=== PATIENT | female | born 1955 | race American Indian/Alaskan Native ===

== ENCOUNTER 2019-02-10 09:31 | Emergency (ER) | payer OTHER ==
[2019-02-10] MEDS ORDERED: TYLENOL PO ONE (10:25)
[2019-02-10] MEDS ORDERED: PEPCID PO ONE (10:25)
[2019-02-10] MEDS ORDERED: NACL 0.9% 500 ML 500 ML IV ONE ×2 (10:25→11:22)
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
[2019-02-10 10:57] LABS: Hematocrit 33.7 % (30.3-42.9); Hemoglobin 11.3 gm/dl (10.1-14.3); Mean Corpuscular HGB Conc 34 % (30-34); Mean Corpuscular Volume 106 fl (79-97); Platelet Count 475 K/mm3 (140-440); Red Blood Count 3.18 M/mm3 (3.65-5.03); Red Cell Distribution Width 12.9 % (13.2-15.2)
[2019-02-10] MEDS ORDERED: BENTYL PO ONE (11:00)
[2019-02-10 11:14] LABS: BUN/Creatinine Ratio 6; Blood Urea Nitrogen 11 mg/dL (7-17); Calcium 8.4 mg/dL (8.4-10.2); Hemolysis Index 568
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
--- NOTE | 2019-02-10 11:21 | XRay Report ---
LEFT SHOULDER, 3 VIEWS: History: Left shoulder pain. Routine views demonstrate normal bony and soft tissue structures with normal joint alignment of the shoulder. Mild osteopenia is suspected. IMPRESSION: No acute process. Mild osteopenia.
[2019-02-10] MEDS ORDERED: MAGNESIUM SULFATE 2GM/50ML 2 GM/50 ML BAG IV ONE (11:22)
[2019-02-10 11:26] LABS: Alanine Aminotransferase TNR units/L (7-56)
[2019-02-10 12:04] LABS: Alanine Aminotransferase 37 units/L (7-56); BUN/Creatinine Ratio 6; Blood Urea Nitrogen 11 mg/dL (7-17); Calcium 8.9 mg/dL (8.4-10.2); Hemolysis Index 30
[2019-02-10 13:05] LABS: Bilirubin,Urine NEG (Negative); Blood,Urine NEG (Negative); Color,Urine Yellow (Yellow); Mucus,Urine FEW /HPF; Urobilinogen,Urine < 2.0 mg/dL (<2.0)
[2019-02-10 13:07] LABS: Creatinine,Urine 176.6 mg/dL (0.1-20.0)
--- NOTE | 2019-02-10 13:09 | Cat Scan Report ---
PROCEDURE: CT HEAD/BRAIN WO CON TECHNIQUE: A noncontrast CT of the head was performed. HISTORY: fall global weakness COMPARISON: None FINDINGS: There is no acute intracranial hemorrhage. There is no brain edema, mass effect or midline shift. Ventricular size is appropriate for brain volume. There is no abnormal extra-axial fluid collections. There is no skull fracture seen. The visualized paranasal sinuses are clear. IMPRESSION: There is no acute intracranial abnormality seen. This document is electronically signed by Brenna Chavez MD., February 10 2019 01:07:47 PM ET
--- NOTE | 2019-02-10 13:13 | Cat Scan Report ---
PROCEDURE: CT ABDOMEN PELVIS WO CON TECHNIQUE: CT of the abdomen and pelvis was performed. No IV contrast or oral contrast administered. Axial images and coronal and sagittal reformatted images were obtained. HISTORY: abd pain n/v COMPARISON: None FINDINGS: There is scarring/interstitial disease at the lung bases. There are aortoiliac atherosclerotic calcifications. There is no abdominal aortic aneurysm. There is no evidence for intestinal obstruction. The appendix is normal. There is a 6 mm nonobstructing left renal calculus. There is no hydronephrosis or evidence of obstruc tive uropathy. Within the limitations of a noncontrast exam, the visualized liver, spleen, pancreas, adrenal glands and kidneys demonstrate no significant abnormality. There is no abnormal fluid collection seen. There is no free intraperitoneal air. Bladder is unremarkable. There is no abnormal pelvic fluid collection or mass seen. IMPRESSION: 6 mm left renal calculus. No hydronephrosis or evidence of acute obstructive uropathy. There is no acute abnormality identified. This document is electronically signed by Brenna Chavez MD., February 10 2019 01:11:30 PM ET
[2019-02-10] MEDS ORDERED: NACL 0.9% 1000 ML 1,000 ML IV ONE (13:26)
[2019-02-10 14:10] LABS: BUN/Creatinine Ratio 6; Blood Urea Nitrogen 11 mg/dL (7-17); Calcium 9.1 mg/dL (8.4-10.2); Hemolysis Index 20
[2019-02-10] MEDS ORDERED: MAG-OX PO ONE (15:00)
[2019-02-10 18:14] VITALS: BP 158/90
== END 2019-02-10 18:15 | disposition home or self-care (01) ==
LOC: ED 09:31
DX: R07.89 Other chest pain (principal); R53.1 Weakness; M25.512 Pain in left shoulder; R11.2 Nausea with vomiting, unspecified; R10.30 Lower abdominal pain, unspecified; I10 Essential (primary) hypertension; J44.9 Chronic obstructive pulmonary disease, unspecified; Z90.711 Acquired absence of uterus with remaining cervical stump
CPT/HCPCS: 36415; 70450; 71045; 73030; 74176; 80048; 80053; 81001; 82550; 82570; 83735; 84300; 84443; 84484; 85027; 85379; 87086; 93005; 93010; 96365; 96366; 99285; G0480; J3475; J7030; 80320

== ENCOUNTER 2019-10-20 06:07 | Emergency (ER) | payer SELFPAY ==
[2019-10-20 11:11] VITALS: BP 130/84
== END 2019-10-20 11:10 | disposition home or self-care (01) ==
LOC: ED 06:07
DX: B35.9 Dermatophytosis, unspecified (principal)
CPT/HCPCS: 99282